=== PATIENT | male | born 1965 | race Caucasian/White ===

== ENCOUNTER → 2018-07-12 | Outpatient (REF) | payer SELFPAY | LOC: M SFHCPLAZ 17:23 | DX: D23.111 Other benign neoplasm of skin of right upper eyelid, including canthus (principal) | CPT/HCPCS: 88305 ==

== ENCOUNTER → 2020-07-30 | Outpatient (CLI) | payer OTHER | LOC: M LABSMTC 09:54 | PROVIDERS: ATTEND Family Medicine | DX: Z20.828 Contact with and (suspected) exposure to other viral communicable diseases (principal) ==